=== PATIENT | female | born 1965 | race Caucasian/White ===

== ENCOUNTER 2017-03-30 04:55 | Emergency (ER) | payer BC, OTHER ==
--- NOTE | 2017-03-30 05:24 | EDM.PDOC ---
ED HPI GENERAL MEDICAL PROBLEM - General Chief Complaint: Cardiovascular Problem Stated Complaint: RAPID HEART RATE Time Seen by Provider: 03/30/17 05:24 - History of Present Illness INITIAL COMMENTS - FREE TEXT/NARRATIVE: 51-year-old female presents emergency room with a rapid heart rate and a sensation she might pass out. This occurred shortly before arrival she awoke this way. Patient does not have a history of anxiety problems and is never really had problems like this in the past. The patient used to be treated for hypothyroidism that by history she's been off her medications for about 3 years she's not positive but thinks she was taking 75 g of level thyroxine daily. Patient has not had any chest pain. No breathing difficulties or shortness of breath. - Related Data Allergies Allergy/AdvReac Type Severity Reaction Status Date / Time No Known Allergies Allergy Verified 03/30/17 05:10 Home Meds: Home Meds Levothyroxine 25 mcg PO ACBREAKFAST #15 tablet 03/30/17 [Rx] Past Medical History Respiratory History: Reports: Asthma Endocrine/Metabolic History: Reports: Hypothyroidism - Past Surgical History GI Surgical History: Reports: Appendectomy Female Surgical History: Reports: Hysterectomy Social & Family History - Tobacco Use Smoking Status *Q: Never Smoker - Recreational Drug Use Recreational Drug Use: No ED ROS GENERAL - Review of Systems Review Of Systems: See Below Constitutional: Reports: No Symptoms HEENT: Reports: No Symptoms Respiratory: Reports: No Symptoms Cardiovascular: Reports: Palpitations. Denies: Chest Pain, Dyspnea on Exertion GI/Abdominal: Reports: No Symptoms Neurological: Reports: No Symptoms. Denies: Seizure, Syncope, Tingling, Tremors Psychiatric: Reports: No Symptoms. Denies: Anxiety ED EXAM, GENERAL - Physical Exam Exam: See Below Exam Limited By: No Limitations General Appearance: Alert, No Apparent Distress, Other (Her blood pressure is elevated but this is coming down her pulse is around 100 the highest seen is 106 ) Head: Atraumatic, Normocephalic Neck: Normal Inspection, Supple, Non-Tender, Full Range of Motion. No: Lymphadenopathy (L), Lymphadenopathy (R), Thyromegaly Respiratory/Chest: No Respiratory Distress, Lungs Clear, Normal Breath Sounds Cardiovascular: Regular Rate, Rhythm, No Edema, No Murmur EKG INTERPRETATION EKG Date: 03/30/17 Rhythm: NSR (Mild sinus tachycardia) [place]: Normal P-Wave: Present QRS: Normal ST-T: Normal QT: Normal Comparison: NA - No Prior EKG EKG Interpretation Comments: Mild sinus tachycardia but otherwise normal EKG Course - Vital Signs Last Recorded V/S: Last Vital Signs Temp 36.6 C 03/30/17 05:11 Pulse 106 H 03/30/17 05:11 Resp 20 03/30/17 05:11 BP 186/97 H 03/30/17 05:11 Pulse Ox 100 03/30/17 05:11 - Orders/Labs/Meds Orders: Active Orders 24 hr Category Date Time Status EKG Documentation Completion [RC] STAT Care 03/30/17 05:32 Active Labs: Laboratory Tests 03/30/17 03/30/17 Range/Units 05:20 05:20 WBC 8.71 (3.98-10.04) K/mm3 RBC 4.71 (3.98-5.22) M/mm3 Hgb 13.9 (11.2-15.7) gm/L Hct 39.6 (34.1-44.9) % MCV 84.1 (79.4-94.8) fl MCH 29.5 (25.6-32.2) pg MCHC 35.1 (32.2-35.5) g/dl RDW Std Deviation 41.6 (36.4-46.3) fL Plt Count 231 (182-369) K/mm3 MPV 11.6 (9.4-12.3) fl Neutrophils % (Manual) 55 (40-60) % Band Neutrophils % 0 (0-10) % Lymphocytes % (Manual) 41 H (20-40) % Atypical Lymphs % 0 % Monocytes % (Manual) 2 (2-10) % Eosinophils % (Manual) 2 (0.7-5.8) % Basophils % (Manual) 0 L (0.1-1.2) Platelet Estimate Adequate RBC Morph Comment Normal Sodium 142 (136-145) mEq/L Potassium 3.3 L (3.5-5.1) mEq/L Chloride 105 (98-107) mEq/L Carbon Dioxide 22 (21-32) mEq/L Anion Gap 18.3 H (5-15) BUN 15 (7-18) mg/dL Creatinine 1.0 (0.55-1.02) mg/dL Est Cr Clr Drug Dosing 66.18 mL/min Estimated GFR (MDRD) 59 (>60) mL/min BUN/Creatinine Ratio 15.0 (14-18) Glucose 118 H (74-106) mg/dL Calcium 8.5 (8.5-10.1) mg/dL Magnesium 1.8 (1.8-2.4) mg/dl Free T4 0.60 L (0.76-1.46) ng/dL TSH 3rd Generation 58.420 H (0.358-3.74) uIU/mL Meds: Medications Discontinued Medications Generic Name Dose Route Start Last Admin Trade Name Freq PRN Reason Stop Dose Admin Potassium Chloride 40 meq 03/30/17 06:46 Klor-Con M20 PO 03/30/17 06:47 ONETIME ONE - Re-Assessments/Exams Free Text/Narrative Re-Assessment/Exam: 03/30/17 07:11 Patient did well here in the emergency room because of what will occur up this evening is unclear. However laboratory evaluation shows a mild hypokalemia but marked hypothyroidism with a TSH of 58 this could be related. The patient received 40 mEq of oral potassium here in the emergency department should be started on levothyroxine 25 g daily with close follow-up in the clinic. Discussed Holter monitoring but she would like to hold off at this point. Departure - Departure Time of Disposition: 07:00 Disposition: Home, Self-Care 01 Clinical Impression: Hypothyroid, Palpitations Prescriptions: Levothyroxine 25 mcg PO ACBREAKFAST #15 tablet Referrals: Jesse Simeon MD [Primary Care Provider] - Forms: ED Department Discharge Additional Instructions: Return to the emergency room with any questions problems worsening symptoms. Your potassium is a little low and your thyroid testing suggest hypothyroidism. Follow up with Dr. Rubio in 2 weeks, sooner if needed. Discuss blood pressure, your slightly elevated pulse and hypothyroidism. If you're still having palpitations consideration should be given to getting outpatient heart monitoring. Also, your potassium was a little low and my need to be rechecked when you have your next blood draw. You been started on Levothyroxine 25 g daily this is a small dose. And your dose may need to be increased in a couple of weeks. - My Orders Last 24 Hours: My Active Orders 03/30/17 05:32 EKG Documentation Completion [RC] STAT - Assessment/Plan Last 24 Hours: My Active Orders 03/30/17 05:32 EKG Documentation Completion [RC] STAT
[2017-03-30] MEDS ORDERED: Potassium Chloride 20 MEQ Tab.ER PO ONE (06:46)
== END 2017-03-30 07:21 | disposition home or self-care (01) ==
LOC: JD.ED 04:55
DX: E03.9 Hypothyroidism, unspecified (principal)
CPT/HCPCS: 36415; 80048; 83735; 84439; 84443; 85025; 93005; 99285; A9270; 93010; 99284

== ENCOUNTER 2022-08-30 11:16 | Emergency (ER) | payer OTHER ==
[2022-08-30] MEDS ORDERED: Ondansetron 4 MG/2 ML SDV IVPUSH ONE (11:59)
[2022-08-30] MEDS ORDERED: Sodium Chloride 0.9% 1,000 ML IV STA (11:59)
[2022-08-30] MEDS ORDERED: Sodium Chloride 0.9% 10 ML Syringe FLUSH PRN (11:59)
[2022-08-30] MEDS ORDERED: Meclizine 25 MG Tab PO ONE (12:40)
[2022-08-30] MEDS ORDERED: Metoclopramide 10 MG/2 ML SDV IVPUSH ONE (13:07)
[2022-08-30] MEDS ORDERED: Iopamidol 755 Mg/ML 100 ML Bottle IVPUSH ONE (14:12)
[2022-08-30] MEDS ORDERED: Sodium Chloride 0.9% 10 ML Syringe FLUSH ONE (14:15)
[2022-08-30] MEDS ORDERED: LORazepam 2 MG/ML SDV IVPUSH ONE (15:37)
== END 2022-08-30 16:00 ==
LOC: JD.ED 11:16
DX: R42 Dizziness and giddiness (principal)
CPT/HCPCS: 36415; 70450; 70496; 70498; 80053; 84439; 84443; 85025; 85610; 85730; 86140; 96361; 96374; 96375; 99285; A9270; J2060; J2405; J2765; J3490; J7030; Q9967